=== PATIENT | female | born 1995 | race Caucasian/White ===

== ENCOUNTER 2020-03-31 13:42 | Observation (INO) | payer OTHER, SELFPAY ==
--- NOTE | 2020-03-31 18:52 | P.TNLD_ITS ---
Visit Information Visit Information Date of evaluation: 03/31/20 Primary OB Provider: Ely Kaur Reason for Evaluation: Yes rule out labor Comments/Additional reasons for admission: 25 yo G1 female presents at 35 weeks 6 days EGA for uncomfortable frequent contractions. [place] her discomfort rated 7/10 pain scale, subsequently went down to only mild discomfort but a few hours later after a cervical exam contractions again uncomfortable. Denies leakage of fluid or vaginal bleeding. Vital Signs Vital Signs: Temp 36.5 C, BP 123/81, Pulse 87 PFSH Medical History (Updated 03/31/20 @ 19:05 by Ely Kaur MD) Adopted (Acute) Allergic rhinitis (Acute) Avulsion of nail plate (Acute ~2017) Encounter for screening colonoscopy (Acute ~08/10/17) History of rectal fissure (Acute) Migraines (Acute) Toenail deformity (Acute) Surgical History (Updated 02/25/20 @ 15:10 by Natalia Cardenas RN) History of mandibular surgery (Acute ~2010) Status post osteotomy (Acute ~11/10/10) Family History (Updated 02/25/20 @ 15:13 by Natalia Cardenas, KAVITA) Mother Seizures Sister Asthma Family/Other Lung cancer Grandmother Breast cancer Hypertension Multiple births, all liveborn Grandfather Cancer Grandmother Hypertension Multiple births, all liveborn Grandfather Stroke Social History marital status: pets and animals: Yes (dog and cat) 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 GBS screen collected by me from distal vagina and rectum at 1720 Repeat exam by me at 1830 cervix unchanged: 0/long/posterior/medium to firm consistency Evaluation Evaluation Baseline heart rate: 135 Variability: Moderate (11-25) monitor accelerations: Present monitor decelerations: Absent Contraction Frequency (minutes): 3 (q 3-5 minutes) Uterine Contraction Intensity: Mild Category of Tracing: I Cervical dilation (cm): 0 Cervical effacement (%): 0 station: -4 Diagnosis, Plan/Disposition Final Diagnosis (1) uterine contractions in third trimester, antepartum: Status: Acute Plan/Disposition Plan: No signs of labor yet. May be early versus prodromal or false labor. Discussed risks and benefits of tocolysis after 34 weeks and do not recommend tocolysis, but observe for labor. She did not desire attempting this stop labor either. I did discuss risk of lung immaturity. Contractions decreased in intensity for while but increased again to being moderately uncomfortable. No cervical change however after 2 hours of the more uncomfortable contractions. I discussed option of continued observation here, with benefit of being close if she desired any pain medication versus discharge home and return when contractions become more uncomfortable. She desired, and I agree with going home for some time and laboring there if this is early labor and returning as needed for discomfort. Discussed returning when contractions become intense enough to feel she may desire pain medication even if she would try to attempt natural labor, for leakage of fluid, gush of fluid, vaginal bleeding or decreased movement. GBS swab collected. Note given not to return to work for duration of , since work is 2 hours from the hospital. OB Disposition: home
[2020-03-31 18:56] LABS: Strep Grp B PCR NEG for Grp B Strep
== END 2020-03-31 19:00 | disposition home or self-care (01) ==
PROVIDERS: Admitting Provider Obstetrics & Gynecology; PCP Family Medicine; Referring Provider Obstetrics & Gynecology; Visit Provider Obstetrics & Gynecology
DX: O47.03 False labor before 37 completed weeks of gestation, third trimester (principal); Z3A.35 35 weeks gestation of pregnancy
CPT/HCPCS: 59025; 59050; 87653; G0378; G0379

== ENCOUNTER 2020-04-23 13:00 | Inpatient (IN) | payer OTHER, SELFPAY ==
[2020-04-23 15:10] VITALS: BP 120/82
[2020-04-23 15:44] LABS: Add Manual Diff / Slide Review NO; Basophils Absolute Auto 0 /uL (0-100); Basophils Percent Auto 0.4 % (0-2); Eosinophils Absolute Auto 100 /uL (0-450); Eosinophils Percent Auto 0.7 % (2-4); Hematocrit 38.3 % (36-46); Hemoglobin 12.9 g/dL (12.0-16.0); Lymphocytes Absolute Auto 1900 /uL (1100-4500); Lymphocytes Percent Auto 16.5 % (25-40); Mean Corpuscular HGB Conc 33.8 % (30-36); Mean Corpuscular Volume 91.7 fL (80-100); Monocytes Absolute Auto 700 /uL (0-900); Monocytes Percent Auto 6.2 % (3-14); Neutrophils Absolute Auto 8800 /uL (1500-7000); Neutrophils Percent Auto 76.2 % (50-75); Platelet Count 151 X10^3/uL (150-400); Red Blood Cell Count 4.17 X10^6/uL (4.0-5.2); White Blood Cell Count 11.6 X10^3/uL (4.5-11.0)
[2020-04-23 16:26] LABS: COVID19 -Nasal RAPID Negative (Negative)
[2020-04-24] MEDS: CALCIUM CARBONATE 500 MG TAB PO (01:15)
[2020-04-24] MEDS: LACTATED RINGERS 1,000 ML 100 ML IV (05:11)
[2020-04-24] MEDS: CEFAZOLIN 2 GM/100 ML FROZ.PIGGY IV (05:11)
--- NOTE | 2020-04-24 08:43 | P.HPOB_ITS ---
OB HPI Date/Time Date of admission: 04/23/20 Date Patient Seen: 04/23/20 Time Patient Seen: 19:00 History of Present Condition Chief complaint: : 1 Para: 0 Estimated Date of Delivery: 04/29/20 Estimated Gestational Age (weeks): 39+1 Narrative: Ashley Moura is a 25 year old female 1 para 0 who presented with rupture membranes at 11:15 a.m. on April 23, 2020. Initially her AmniSure was negative. Patient got up to walk for 1 hour, had another gush of fluid and the AmniSure was positive. She is having mild contractions about every 2-4 minutes. Evaluation Evaluation Baseline heart rate: 140 Variability: Moderate (11-25) monitor accelerations: Present monitor decelerations: Absent Contraction Frequency (minutes): 4 Uterine Contraction Intensity: Mild Category of Tracing: I Cervical dilation (cm): 3 Cervical effacement (%): 90 station: 0 Laboratory results: Laboratory Tests 04/23/20 04/23/20 04/23/20 14:50 15:30 15:30 WBC 11.6 H RBC 4.17 Hgb 12.9 Hct 38.3 MCV 91.7 MCH 31.0 MCHC 33.8 RDW 13.0 Plt Count 151 Neut % (Auto) 76.2 H Lymph % (Auto) 16.5 L [place] % (Auto) 6.2 Eos % (Auto) 0.7 L Baso % (Auto) 0.4 Neut # (Auto) 8800 H Lymph # (Auto) 1900 [place] # (Auto) 700 Eos # (Auto) 100 Baso # (Auto) 0 COVID-19 PCR Negative Blood Type A Positive Antibody Screen Negative Non-invasive Membranes Rupture Test: positive Comments: Initially AmniSure negative, after walking and patient had another gush of fluid the AmniSure was positive. [facility] Medical History (Updated 04/21/20 @ 16:44 by Donita Pettit MD) Adopted (Acute) Allergic rhinitis (Acute) Avulsion of nail plate (Acute ~2017) Encounter for screening colonoscopy (Acute ~08/10/17) History of rectal fissure (Acute) Migraines (Acute) Toenail deformity (Acute) Surgical History (Updated 02/25/20 @ 15:10 by Natalia Cardenas RN) History of mandibular surgery (Acute ~2010) Status post osteotomy (Acute ~11/10/10) Family History (Updated 02/25/20 @ 15:13 by Natalia Cardenas RN) Mother Seizures Sister Asthma Family/Other Lung cancer Grandmother Breast cancer Hypertension Multiple births, all liveborn Grandfather Cancer Grandmother Hypertension Multiple births, all liveborn Grandfather Stroke Social History marital status: pets and animals: Yes (dog and cat) 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) occupational status: employed current occupational exposures/hazards: Yes Previous occupational history: [employer] special mayo needs: No Smoking Status: Never smoker second hand exposure: No alcohol intake: former (pre- : social) substance use type: does not use Meds Home Medications and Allergies Home Medications Medication Instructions Recorded Confirmed Type calcium carb,cit 315 mg-vitamin D3 tab PO 02/25/20 04/14/20 History 250 unit-phytosterols 200 mg tablet fiber tab PO 02/25/20 04/14/20 History prenat.vits,negro,[id number] 1 tab PO DAILY 02/25/20 04/23/20 History Allergies Allergy/AdvReac Type Severity Reaction Status Date / Time Penicillins Allergy Severe Anaphylaxis Verified 04/14/20 14:09 Exam Vital Signs (past 8 hours): Generally: Patient walking around in room, fairly comfortable with contractions. Lungs: Clear to auscultation bilaterally Cardiovascular: Regular rate and rhythm Fundal height: 39cm Extremities: Negative Homans, no edema Objective Labs Result Diagrams: 04/23/20 15:30 Labs: Laboratory Results - last 24 hr 04/23/20 04/23/20 04/23/20 14:50 15:30 15:30 WBC 11.6 H RBC 4.17 Hgb 12.9 Hct 38.3 MCV 91.7 MCH 31.0 MCHC 33.8 RDW 13.0 Plt Count 151 Neut % (Auto) 76.2 H Lymph % (Auto) 16.5 L [place] % (Auto) 6.2 Eos % (Auto) 0.7 L Baso % (Auto) 0.4 Neut # (Auto) 8800 H Lymph # (Auto) 1900 [place] # (Auto) 700 Eos # (Auto) 100 Baso # (Auto) 0 COVID-19 PCR Negative Blood Type A Positive Antibody Screen Negative Assessment and Plan Assessment and Plan Assessment and Plan narrative: Assessment: 25-year-old 1 para 0 at 39-,1/7 weeks gestation with spontaneous rupture of membranes 8 hours ago. No signs and symptoms of chorioamnionitis Early labor GBS negative Plan: Allow patient to go into active labor on her own The contractions not regular by 5:00 a.m., will augment with Pitocin If not delivered by 18 hours of ruptured membranes will add antibiotics Epidural as necessary Expected management to spontaneous vaginal delivery Time Spent with Patient Total time spent with greater than 50% in coordination of care (as documented) at patient's floor/unit and/or counseling patient:: 15-24 minutes
--- NOTE | 2020-04-24 08:47 | PM.OBPNLAB ---
Date/Time Date Patient Seen: 04/24/20 Time Patient Seen: 07:30 Pain Control Pain control: tolerating well Pelvic Exam Dilation (cm): 10 Effacement (%): 100 station: +1 Amniotic membrane status: Ruptured Contractions Date/Time contractions began: 1130 am 04/23/20 Contractions on admission: irregular Monitor mode: External Contraction frequency (min): 2 Contraction duration (min): 1 Contraction pattern: Regular Contraction intensity: Strong/Firm Status status: Category l Heart Rate Baseline: 120 Monitor Accelerations: Present Monitor Decelerations: Early Monitor Variability: Moderate Assessment and Plan Assessment: active labor Plan: continuous present management
--- NOTE | 2020-04-24 08:49 | PM.OBHP.1 ---
OB HPI Date/Time Date of admission: 04/23/20 Date Patient Seen: 04/23/20 Time Patient Seen: 19:00 History of Present Condition Chief complaint: : 1 Para: 0 Estimated Date of Delivery: 04/29/20 Estimated Gestational Age (weeks): 39+1 Narrative: Ashley Moura is a 25 year old female 1 para 0 at 39-,1/7 weeks gestation with spontaneous rupture of membranes at 11:15 a.m. on April 23, 2020 Comments: Initially AmniSure was negative, after walking for an hour AmniSure was positive. Indications Other reason(s) for admission: Spontaneous rupture of membranes History of Present care: good care, initiated at week # (Ten), number of visits (Twelve) and pounds weight gain (29) Dating criteria: LMP confirmed by 1st trimester US Ultrasounds: normal 1st trimester US and normal mid trimester US Obstetrical complications: none Medical complications: none Preadmission Labs Blood type: A (+) positive -: Antibody screen: negative, GBS status: negative, HBsAG: negative, HIV: negative and RPR/VDLR: negative -: Chlamydia screen: not detected and Gonorrhea screen: not detected -: Rubella: immune and Varicella: immune HCT: 38.3 PAP: Normal Integrated screen: normal Urine: Negative 1 hr GTT: 103 Prior (ies) History: N/A Evaluation Evaluation Baseline heart rate: 140 Variability: Moderate (11-25) monitor accelerations: Present monitor decelerations: Absent Contraction Frequency (minutes): 4 Uterine Contraction Intensity: Mild Category of Tracing: I Cervical dilation (cm): 3 Cervical effacement (%): 90 station: 0 Laboratory results: Laboratory Tests 04/23/20 04/23/20 04/23/20 14:50 15:30 15:30 WBC 11.6 H RBC 4.17 Hgb 12.9 Hct 38.3 MCV 91.7 MCH 31.0 MCHC 33.8 RDW 13.0 Plt Count 151 Neut % (Auto) 76.2 H Lymph % (Auto) 16.5 L [place] % (Auto) 6.2 Eos % (Auto) 0.7 L Baso % (Auto) 0.4 Neut # (Auto) 8800 H Lymph # (Auto) 1900 [place] # (Auto) 700 Eos # (Auto) 100 Baso # (Auto) 0 COVID-19 PCR Negative Blood Type A Positive Antibody Screen Negative Non-invasive Membranes Rupture Test: positive [facility] Medical History (Updated 04/21/20 @ 16:44 by Donita Pettit MD) Adopted (Acute) Allergic rhinitis (Acute) Avulsion of nail plate (Acute ~2017) Encounter for screening colonoscopy (Acute ~08/10/17) History of rectal fissure (Acute) Migraines (Acute) Toenail deformity (Acute) Surgical History (Updated 02/25/20 @ 15:10 by Natalia Cardenas, KAVITA) History of mandibular surgery (Acute ~2010) Status post osteotomy (Acute ~11/10/10) Family History (Updated 02/25/20 @ 15:13 by Natalia Cardenas RN) Mother Seizures Sister Asthma Family/Other Lung cancer Grandmother Breast cancer Hypertension Multiple births, all liveborn Grandfather Cancer Grandmother Hypertension Multiple births, all liveborn Grandfather Stroke Social History marital status: pets and animals: Yes (dog and cat) 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) occupational status: employed current occupational exposures/hazards: Yes Previous occupational history: [employer] special mayo needs: No Smoking Status: Never smoker second hand exposure: No alcohol intake: former (pre- : social) substance use type: does not use Meds Home Medications and Allergies Home Medications Medication Instructions Recorded Confirmed Type calcium carb,cit 315 mg-vitamin D3 tab PO 02/25/20 04/14/20 History 250 unit-phytosterols 200 mg tablet fiber tab PO 02/25/20 04/14/20 History prenat.vits,negro,[id number] 1 tab PO DAILY 02/25/20 04/23/20 History Allergies Allergy/AdvReac Type Severity Reaction Status Date / Time Penicillins Allergy Severe Anaphylaxis Verified 04/14/20 14:09 Exam Vital Signs (past 8 hours): Generally: Patient tolerating contractions well Lungs: Clear to auscultation bilaterally Cardiovascular: Regular rate and rhythm Fundal height: 39 cm Estimated weight: 7 and half to 8 lb Extremities: Negative Homans, no edema Objective Labs Result Diagrams: 04/23/20 15:30 Labs: Laboratory Results - last 24 hr 04/23/20 04/23/20 04/23/20 14:50 15:30 15:30 WBC 11.6 H RBC 4.17 Hgb 12.9 Hct 38.3 MCV 91.7 MCH 31.0 MCHC 33.8 RDW 13.0 Plt Count 151 Neut % (Auto) 76.2 H Lymph % (Auto) 16.5 L [place] % (Auto) 6.2 Eos % (Auto) 0.7 L Baso % (Auto) 0.4 Neut # (Auto) 8800 H Lymph # (Auto) 1900 [place] # (Auto) 700 Eos # (Auto) 100 Baso # (Auto) 0 COVID-19 PCR Negative Blood Type A Positive Antibody Screen Negative Assessment and Plan Assessment and Plan Assessment and Plan narrative: Assessment: 25-year-old 1 para 0 at 39-,1/7 weeks gestation with spontaneous rupture of membranes, in early labor GBS negative Plan: Allow patient to go into active labor on her own If not in active labor by 5:00 a.m. on April 24, 2020 will augment with Pitocin If not delivered by 18 hours will add antibiotics Epidural as necessary Expected management to spontaneous vaginal delivery Time Spent with Patient Total time spent with greater than 50% in coordination of care (as documented) at patient's floor/unit and/or counseling patient:: 15-24 minutes
[2020-04-24] MEDS: OXYTOCIN 10 UNIT/ML VIAL IM (10:08)
--- NOTE | 2020-04-24 10:31 | PM.OBPRVD ---
Events: Premature Rupture of Membrane Labor & Delivery Delivery date: 04/24/20 Intrapartal events: None Cervical ripening method: none Induction method: none Delivery monitor: external FHT and external uterine Route of delivery: Episiotomy description: None L&D Laceration Description: Periurethral - 1st Degree and Labial (Right) Delivery repair: chromic (4-0) Estimated blood loss (mL): 100 Anesthesia type: Local (for repair) Complications: None Narrative: Patient complete and pushed for 2 hours. At 9:58 a.m., a live female infant delivered spontaneously in the FRANKY presentation. No nuchal cord. The remainder of the body delivered without difficulty and infant was placed on mom's abdomen. After the cord stopped pulsing, the cord was double clamped and cut. Cord bloods were obtained. 10 units of Pitocin were given in the IV fluids. The placenta delivered intact with a 3 vessel cord at 10:07 a.m.. The fundus was massaged to firm. A right labial and periurethral superficial laceration was repaired with 4 0 chromic in a running interlocking fashion. Hemostasis was achieved. EBL 100 cc. Apgars 9 at 1 minute and 9 at 5 minutes. 8 cc of 1% lidocaine used for repair of laceration. No epidural. The . Mom and stable to recovery. Plan for aftercare: To routine care
[2020-04-24] MEDS: IBUPROFEN 600 MG TABLET PO ×2 (12:05→18:03)
[2020-04-24] MEDS: DERMOPLAST SPRAY 20% 60 ML 1 SPRAY TOP (12:14)
[2020-04-25] MEDS: IBUPROFEN 600 MG TABLET PO (01:45)
[2020-04-25 07:43] LABS: Hematocrit 30.7 % (36-46); Hemoglobin 10.2 g/dL (12.0-16.0)
--- NOTE | 2020-04-25 09:26 | P.PNOB_ITS ---
Subjective - OB Subjective Patient comments: no complaints and pain well controlled baby status: doing well and nursing well feeding status: exclusively breast feeding Date Patient Seen: 04/25/20 Time Patient Seen: 09:26 Interval history: Patient is a 25-year-old 1 para 1 day # 1 status post spontaneous vaginal delivery. Her course has been unremarkable. Her bleeding is tapering. is going well. Pain is well controlled with ibuprofen. She has been able to void without difficulty. Exam Vital Signs (past 8 hours): Generally: Patient is sitting up in bed, holding infant, no acute distress Fundus: Firm at U -1 Extremities: Negative Homans, no edema Objective Labs Result Diagrams: 04/25/20 07:36 Labs: Laboratory Results - last 24 hr 04/25/20 07:36 Hgb 10.2 L Hct 30.7 L Assessment & Plan Plan day: 1 plan OB: discharge home Time Spent With Patient Time: Total time spent is greater than 50% in coordination of care (as docum ented) at patient's floor/unit and/or counseling patient: Time with patient: 15-24 minutes
--- NOTE | 2020-04-25 09:27 | P.DS_ITS ---
Discharge Providers Provider Date of admission: 04/23/20 13:00 Discharge Date: 04/25/20 Primary care physician: Kassandra Sullivan DO Consults: 04/25/20 10:28 Consult to Plant Operations Manager Routine Comment: Discharge provider: Donita Pettit MD Summary Hospital Course Date Patient Seen: 04/25/20 Time Patient Seen: 09:28 Procedures: Spontaneous vaginal delivery First-degree periurethral/labial laceration repair Hospital Course: Patient is a 25-year-old 2 para 2 who presented on Sunday at 1:00 p.m. with ruptured membranes since 11:15 a.m.. Initially the AmniSure was negative, but after walking for an hour she had a gush of fluid and AmniSure was positive. She progressed into active labor on her own. She received a dose of antibiot ics at 6:00 p.m. of ruptured membranes. On April 24, 2020 she had a spontaneous vaginal delivery at 9:58 a.m. without complication. She had a first-degree periurethral/right labia minora laceration which was repaired. Her course was unremarkable. Peripartum Data Infant Delivery Method: Natural Vaginal Laceration Description: Periurethral - 1st Degree and Labial (Right labia minora) Episiotomy description: None Procedures: Spontaneous vaginal delivery Laceration repair Prolonged rupture of membranes complications: none Status at Discharge Cognitive/behavioral status at discharge: oriented Functional status at discharge: independent ambulation Overall status at discharge: patient is progressing back to baseline Time Spent with Patient Time attestation: Total time spent providing and/or coordinating discharge services: Time spent: Less than 30 minutes Objective Labs Result Diagrams: 04/25/20 07:36 Labs: Laboratory Results - last 24 hr 04/25/20 07:36 Hgb 10.2 L Hct 30.7 L Discharge Plan Discharge Plan Patient Disposition: Home Discharge comment: Call with fever, chills, abdominal pain not taking care with ibuprofen, or bleeding vaginally more than a pad in an hour Discharge orders & Medications Prescriptions: Continued prenat.vits,negro,[id number] Tablet 1 tab PO DAILY RF: 0 fiber Tablet,Chewable PO RF: 0 calcium carb,[id number] 315-250-200 mg-unit-mg tablet PO RF: 0 Follow up/Referrals: Donita Pettit MD [Physician] - 6 Weeks Diet/Activity/Treatments Diet: Regular Activity: No intercourse Skin/Wound/Dressing Care Report to your healthcare provider any signs of infection, such as:: chills, fever, increased pain and unusual drainage Visit Report/Discharge Packet Instructions: DI for Labor and Delivery, Vaginal Stand Alone Forms: Discharge: Care Visit Report Forms: Patient Portal/API, Stroke Signs & Symptoms Discharge Data Primary Care Provider: Kassandra Sullivan Attending Provider: Donita Pettit Admit Date/Time: 04/23/20 13:00
[2020-04-25 11:24] VITALS: BP 120/82; PULSE 80; RESP 18; TEMP 36.6
== END 2020-04-25 12:15 | disposition home or self-care (01) | DRG 807 ==
PROVIDERS: Obstetrics & Gynecology; Admitting Provider Obstetrics & Gynecology; PCP Family Medicine; Referring Provider Obstetrics & Gynecology; Visit Provider Obstetrics & Gynecology
DX: O42.02 Full-term premature rupture of membranes, onset of labor within 24 hours of rupture (principal); Z37.0 Single live birth; Z3A.39 39 weeks gestation of pregnancy; O71.82 Other specified trauma to perineum and vulva; O70.0 First degree perineal laceration during delivery; Z11.59 Encounter for screening for other viral diseases
CPT/HCPCS: 36415; 59050; 59410; 84112; 85014; 85018; 85025; 86850; 86900; 86901; 87635; G0378; G0379; J0690; J2590